=== PATIENT | female | born 1950 | race Caucasian/White ===

== ENCOUNTER 2019-03-14 13:34 | Outpatient (CLI) | payer OTHER ==
[~2019-03-14 13:34] MED LIST: CLONAZEPAM0.5 MG; TOPROL XL25 MG; VASOTEC10 MG
== END 2019-03-14 13:36 | disposition home or self-care (01) ==
LOC: SONOGRAMA 13:34 → MAMO-SONO 14:15
DX: M79.605 Pain in left leg (principal)

== ENCOUNTER 2019-11-08 13:19 | Outpatient (CLI) | payer OTHER | END 2019-11-08 13:20 | disposition home or self-care (01) | LOC: SONOGRAMA 13:19 | DX: N30.31 Trigonitis with hematuria (principal); R82.90 Unspecified abnormal findings in urine ==

== ENCOUNTER 2021-08-05 09:43 | Outpatient (CLI) | payer OTHER | END 2021-08-05 09:55 | disposition home or self-care (01) | LOC: TOM 09:43 | PROVIDERS: ATTEND Internal Medicine Gastroenterology | DX: K86.2 Cyst of pancreas (principal); R10.84 Generalized abdominal pain | CPT/HCPCS: 74178; Q9965 ==

== ENCOUNTER 2021-08-05 11:22 | Outpatient (CLI) | payer OTHER | END 2021-08-05 11:23 | disposition home or self-care (01) | LOC: LAB 11:22 | PROVIDERS: ATTEND Radiology Diagnostic Radiology | DX: N20.0 Calculus of kidney (principal) ==

== ENCOUNTER 2022-03-04 08:14 | Outpatient (CLI) | payer OTHER | END 2022-03-04 08:31 | disposition home or self-care (01) | LOC: TOM 08:14 | PROVIDERS: ATTEND Internal Medicine Gastroenterology | DX: K86.89 Other specified diseases of pancreas (principal) | CPT/HCPCS: 74160; Q9965 ==

== ENCOUNTER 2022-08-25 08:25 | Outpatient (CLI) | payer OTHER | END 2022-08-25 08:30 | disposition home or self-care (01) | LOC: SONOGRAMA 08:25 | PROVIDERS: ATTEND Internal Medicine | DX: R10.10 Upper abdominal pain, unspecified (principal); K76.0 Fatty (change of) liver, not elsewhere classified; Q61.01 Congenital single renal cyst; R73.01 Impaired fasting glucose; E78.1 Pure hyperglyceridemia; F33.1 Major depressive disorder, recurrent, moderate; I11.9 Hypertensive heart disease without heart failure ==

== ENCOUNTER 2023-07-27 08:09 | Outpatient (CLI) | payer OTHER | END 2023-07-27 08:13 | disposition home or self-care (01) | LOC: SONOGRAMA 08:09 | PROVIDERS: ATTEND Internal Medicine | DX: R10.10 Upper abdominal pain, unspecified (principal) ==

== ENCOUNTER 2023-09-02 11:01 | Outpatient (CLI) | payer OTHER | END 2023-09-02 11:12 | disposition home or self-care (01) | LOC: TOM 11:01 | DX: J44.9 Chronic obstructive pulmonary disease, unspecified (principal) ==

== ENCOUNTER 2024-05-21 10:26 | Outpatient (CLI) | payer OTHER | END 2024-05-21 10:38 | disposition home or self-care (01) | LOC: TOM 10:26 | PROVIDERS: ATTEND Otolaryngology | DX: R42 Dizziness and giddiness (principal) ==

== ENCOUNTER 2024-10-16 08:37 | Outpatient (CLI) | payer OTHER | END 2024-10-16 09:12 | disposition home or self-care (01) | LOC: TOM 08:37 | PROVIDERS: ATTEND Internal Medicine | DX: S09.8XXA Other specified injuries of head, initial encounter (principal); W10.1XXA Fall (on)(from) sidewalk curb, initial encounter ==

== ENCOUNTER 2025-01-22 08:10 | Outpatient (CLI) | payer OTHER | END 2025-01-22 08:19 | disposition home or self-care (01) | LOC: RAD 08:10 | PROVIDERS: ATTEND Internal Medicine | DX: I11.9 Hypertensive heart disease without heart failure (principal); F33.1 Major depressive disorder, recurrent, moderate; E78.1 Pure hyperglyceridemia; R73.01 Impaired fasting glucose ==

== ENCOUNTER 2025-02-06 11:47 | Outpatient (CLI) | payer OTHER | END 2025-02-06 11:49 | disposition home or self-care (01) | LOC: MRI 11:47 | PROVIDERS: ATTEND Psychiatry & Neurology Clinical Neurophysiology | DX: S06.330A Contusion and laceration of cerebrum, unspecified, without loss of consciousness, initial encounter (principal) | CPT/HCPCS: 70551 ==

== ENCOUNTER 2025-02-11 09:27 | Outpatient (CLI) | payer OTHER | END 2025-02-11 09:28 | disposition home or self-care (01) | LOC: NUCLEAR 09:27 | PROVIDERS: ATTEND Psychiatry & Neurology Clinical Neurophysiology | DX: Z82.62 Family history of osteoporosis (principal); M81.0 Age-related osteoporosis without current pathological fracture ==